=== PATIENT | female | born 1940 | race Caucasian/White ===

== ENCOUNTER 2023-04-06 09:09 | Outpatient (RCR) | payer OTHER, SELFPAY | END 2023-04-06 23:59 | disposition home or self-care (01) | LOC: RPT 09:09 | PROVIDERS: ATTENDING PHYSICIAN Psychiatry & Neurology Neurology; FAMILY PHYSICIAN Family Medicine | DX: R26.89 Other abnormalities of gait and mobility (principal) | CPT/HCPCS: 97110; 97112; 97162 ==

== ENCOUNTER 2023-05-11 08:39 | Outpatient (RCR) | payer OTHER, SELFPAY | END 2023-05-11 23:59 | disposition home or self-care (01) | LOC: RPT 08:39 | PROVIDERS: ATTENDING PHYSICIAN Psychiatry & Neurology Neurology; FAMILY PHYSICIAN Family Medicine | DX: R26.89 Other abnormalities of gait and mobility (principal); M62.81 Muscle weakness (generalized) | CPT/HCPCS: 97110; 97112 ==

== ENCOUNTER 2023-05-19 09:45 | Outpatient (RCR) | payer OTHER, SELFPAY | END 2023-05-19 11:38 | disposition home or self-care (01) | LOC: RPT 09:45 | PROVIDERS: ATTENDING PHYSICIAN Psychiatry & Neurology Neurology; FAMILY PHYSICIAN Family Medicine | DX: R26.89 Other abnormalities of gait and mobility (principal) | CPT/HCPCS: 97110; 97112 ==

== ENCOUNTER → 2023-09-05 07:43 | Outpatient (REF) | payer OTHER, SELFPAY | LOC: PAVMRI 07:43 | PROVIDERS: ATTENDING PHYSICIAN Orthopaedic Surgery Hand Surgery; FAMILY PHYSICIAN Family Medicine | DX: M25.511 Pain in right shoulder (principal) | CPT/HCPCS: 73221 ==

== ENCOUNTER → 2023-09-28 08:26 | Outpatient (REF) | payer OTHER, SELFPAY | LOC: RCS 08:26 | PROVIDERS: ATTENDING PHYSICIAN Internal Medicine Cardiovascular Disease; FAMILY PHYSICIAN Family Medicine | DX: Z01.818 Encounter for other preprocedural examination (principal); R00.2 Palpitations; I47.10 Supraventricular tachycardia, unspecified | CPT/HCPCS: 93225; 93226 ==

== ENCOUNTER 2023-10-11 06:23 | Day surgery (SDC) | payer OTHER, SELFPAY ==
[2023-10-05 07:40] VITALS: BMI 31.2
[2023-10-05 08:49] LABS: % Basophils 0.7 % (0-2); % Eosinophils 2.1 % (0-6); % Immature Granulocytes 0.3 % (0-0.5); % Lymphocytes 36.6 % (20.5-51.1); % Monocytes 9.1 % (1.7-9.3); % Neutrophils 51.2 % (42.2-75.2); Absolute Basophils 0.1 10^3/uL (0-0.2); Absolute Eosinophils 0.2 10^3/uL (0-0.7); Absolute Lymphocytes 2.7 10^3/uL (1.2-3.4); Absolute Monocytes 0.7 10^3/uL (0.1-0.6); Absolute Neutrophils 3.7 10^3/uL (1.4-6.5); Hemoglobin 13.6 g/dL (12.0-16.0); Mean Corp Hgb Conc. 33.2 g/dL (33.0-37.0); Mean Corpuscular Hgb 31.6 pg (27.0-31.0); Mean Corpuscular Volume 95.1 fL (81.0-99.0); Mean Platelet Volume 9.9 fL (7.4-10.4); Nucleated Red Blood Cells % 0 %; Platelet Count 316 10^3/uL (130-400); Red Blood Cell Count 4.31 10^6/uL (4.20-5.40); Red Cell Dist. Width 13.6 % (11.5-14.5); White Blood Cell Count 7.3 10^3/uL (4.8-10.8)
[2023-10-05 09:13] LABS: Blood Urea Nitrogen 11 mg/dl (7-17); Carbon Dioxide 26 mmol/L (22-30); Chloride 102 mmol/L (98-107); Estimated Creatinine Clearance 50 ml/min; Glucose 98 mg/dl (70-99); Potassium 4.7 mmol/L (3.5-5.1); Sodium 138 mmol/L (135-145); eGFR > 60.00
[2023-10-11] VITALS (10 sets, daily range): BP systolic 114–163; BP diastolic 47–98; BMI 31.2
[2023-10-11] MEDS: NORMOSOL-R 1000 IV (07:52)
[2023-10-11] MEDS: VANCOCIN 200 IV (07:52)
[2023-10-11] MEDS: TYLENOL 1000 MG PO (08:04)
[2023-10-11] MEDS: CELEBREX 200 MG PO (08:04)
[2023-10-11] MEDS: DILAUDID 0.25 MG IV ×2 (10:37→10:55)
[2023-10-11] MEDS: ZOFRAN 4 MG IV (10:55)
== END 2023-10-11 12:25 | disposition home or self-care (01) ==
LOC: SDS 06:23
PROVIDERS: ATTENDING PHYSICIAN Orthopaedic Surgery Hand Surgery; FAMILY PHYSICIAN Family Medicine; OTHER PHYSICIAN Internal Medicine
DX: M75.102 Unspecified rotator cuff tear or rupture of left shoulder, not specified as traumatic (principal); M75.42 Impingement syndrome of left shoulder; M75.22 Bicipital tendinitis, left shoulder
CPT/HCPCS: 29827; 29828; 29826; 36415; 80048; 85025; C1713

== ENCOUNTER → 2023-12-30 08:39 | Outpatient (REF) | payer OTHER, SELFPAY | LOC: RAD 08:39 | PROVIDERS: ATTENDING PHYSICIAN Internal Medicine Gastroenterology; FAMILY PHYSICIAN Family Medicine | DX: K58.1 Irritable bowel syndrome with constipation (principal) | CPT/HCPCS: 74018 ==

== ENCOUNTER 2024-07-20 15:48 | Emergency (ER) | payer OTHER, SELFPAY ==
[2024-07-20 15:49] VITALS: BP 154/84
[2024-07-20 16:21] LABS: % Basophils 0.6 % (0-2); % Eosinophils 1.2 % (0-6); % Immature Granulocytes 0.3 % (0-0.5); % Lymphocytes 30.9 % (20.5-51.1); % Monocytes 8.7 % (1.7-9.3); % Neutrophils 58.3 % (42.2-75.2); Absolute Basophils 0.1 10^3/uL (0-0.2); Absolute Eosinophils 0.1 10^3/uL (0-0.7); Absolute Lymphocytes 2.4 10^3/uL (1.2-3.4); Absolute Monocytes 0.7 10^3/uL (0.1-0.6); Absolute Neutrophils 4.5 10^3/uL (1.4-6.5); Hematocrit 39.5 % (37.0-47.0); Hemoglobin 13.5 g/dL (12.0-16.0); Mean Corp Hgb Conc. 34.2 g/dL (33.0-37.0); Mean Corpuscular Hgb 30.9 pg (27.0-31.0); Mean Corpuscular Volume 90.4 fL (81.0-99.0); Mean Platelet Volume 8.9 fL (7.4-10.4); Nucleated Red Blood Cells % 0 %; Platelet Count 283 10^3/uL (130-400); Red Blood Cell Count 4.37 10^6/uL (4.20-5.40); White Blood Cell Count 7.7 10^3/uL (4.8-10.8)
[2024-07-20 16:39] LABS: ALT (SGPT) 35 U/L (0-35); AST (SGOT) 29 U/L (14-36); Albumin 4.1 g/dl (3.5-5.0); Alkaline Phosphatase 88 U/L (38-126); Blood Urea Nitrogen 13 mg/dl (7-17); Calcium 9.7 mg/dl (8.4-10.2); Carbon Dioxide 25 mmol/L (22-30); Chloride 106 mmol/L (98-107); Glucose 119 mg/dl (70-99); Potassium 4.6 mmol/L (3.5-5.1); Sodium 137 mmol/L (135-145); Total Bilirubin 0.7 mg/dl (0.2-1.3); Total Protein 7.1 g/dl (6.3-8.2); eGFR > 60.00
[2024-07-20 20:06] VITALS: BMI 30.1
[2024-07-20 20:07] VITALS: BP 194/76
--- NOTE | 2024-07-20 20:20 | ED.GENMED ---
History of Present Illness
General
Chief Complaint: Dizziness
Source: patient
Exam Limitations: none
Time Seen by Provider: 07/20/24 20:05
History of Present Illness
History of Present Illness:
84yoF with a history of hypertension and hyperlipidemia presenting with her daughter for evaluation of dizziness. Symptoms began this morning when she rolled over in bed after waking up at 5am. She reports feeling like the room is spinning. She
only has symptoms with head movement and position changes. She has no symptoms at rest. She also reports nausea but denies any vomiting. She has a mild headache currently which she believes is from not eating all day today. She was seen by her
PCP earlier today and was sent to the ED for evaluation. She denies any chest pain, shortness of breath, paresthesias, weakness, visual changes, head trauma, hearing loss, tinnitus, ear pain.
Past History
Past History
ED Past Medical History: HTN and Hypercholesterolemia
ED Past Surgical History: Appendectomy, Gynecological and Orthopedic
Social History
Tobacco: Former smoker
Alcohol: Daily
Drug: None
Living: with family
Phy Exam
General Physical Exam
General Presentation: well appearing and no apparent distress
General age: appears stated age
General Skin: warm and dry
General Habitus: normal
General Mental: alert
ENT Exam
ENT Exam: TM's normal and normocephalic
Eye Exam
Eye Exam: PERRL, EOMI and conjunctiva normal
Cardiovascular Exam
Cardiovascular Exam: regular rate/rhythm
Pulmonary Exam
Pulmonary Exam: lungs clear, no respiratory distress, no rales, no crackles, no rhonchi and no wheezing
Neurological Exam
Neurological Exam: alert, CN II-XII intact, no motor deficits, speech normal and other (CN 2-12 intact. PERRL. EOMs intact. 5/5 strength in all extremities. Normal finger to nose and heel to aguilar bilaterally. )
Mary Carmen Coma Scale
Eye Opening: Spontaneous
Verbal Response: Oriented
Motor Response: Obeys Commands
GCS Total Score: 15
Skin Exam
Skin Exam: normal color and warm/dry
Psychiatric Exam
Psychiatric Exam: normal mood/affect
Course
Orders/Labs/Results
Orders:
Orders
07/20/24 16:09
Complete Blood Count/With Diff Urgent
Comprehensive Metabolic Panel Urgent
07/20/24 20:19
Electrocardiogram (*1) Urgent
Reason for Study: Vertigo / Dizzy
CT Head W/o Iv Contrast Urgent
Comment:
Reason For Exam: dizziness
EKG- Treatment ONCE
Meclizine [Antivert] 25 mg PO NOW STA
Ondansetron Injectable [Zofran] 4 mg IV NOW STA
07/20/24 21:15
Troponin I Urgent
Abnormal Lab Results
07/20/24
16:09
Absolute Monos (auto) 0.7 H 10^3/uL
(0.1-0.6)
Glucose 119 H mg/dl
(70-99)
07/20/24 16:09
07/20/24 16:09
Vital Signs
Initial and Last Documented VS:
Initial Vital Signs
Temp Pulse Resp BP Pulse Ox
98.2 F 75 18 154/84 97
07/20/24 15:49 07/20/24 15:49 07/20/24 15:49 07/20/24 15:49 07/20/24 15:49
Last Documented Vital Signs
Temp Pulse Resp BP Pulse Ox
98.2 F 66 19 149/64 96
07/20/24 15:49 07/20/24 22:00 07/20/24 21:45 07/20/24 22:00 07/20/24 21:45
MDM/Problems Addressed
Differential Diagnosis Includes:
84yoF here with dizziness that began this morning. Feels like room is spinning. Only present with head movement/position changes. +Nausea. No dizziness on initial exam. Neuro exam is non-focal. There is no ataxia or nystagmus appreciated.
Differential diagnosis includes but is not limited to: BPPV, vestibular neuronitis, labyrinthitis, M�ni�re's, less likely CVA less likely CVA
Initial ED plan: Basic labs obtained in triage which are unremarkable. Will check troponin/EKG and CT head. Meclizine and IV Zofran and reassess.
*EKG
Interpreted by ED Provider?: Yes
EKG Intrepretation Date: 07/20/24
Heart Rate: 66
Rate: normal
Rhythm: sinus
[place]: normal axis
Interval: normal interval
QRS Pattern: normal QRS
Ischemia: no ischemia
*Critical Care Note
Total Time (30-74mins, 75-104mins- exclusive of procedures): Not Applicable
Update Note
Update Note:
EKG shows normal sinus rhythm without ischemic changes and troponin within normal limits. Head CT negative for acute findings. Patient is asymptomatic on reassessment and is feeling better after medications. She was able to ambulate independently
with a steady gait without any recurrent dizziness. Suspect peripheral vertigo. Very low clinical suspicion of CVA. No indication for hospitalization. Prescriptions provided for meclizine and Zofran and paper prescription for outpatient
vestibular therapy given. Advised close follow-up with PCP and strict ED return precautions discussed. Both patient and daughter are in agreement with plan. She was discharged in stable condition.
ED Attending Note
-
Portions of this chart may have been created with voice recognition software.� Occasional wrong word or��sound alike� substitutions may have occurred due to the inherent limitations of voice recognition software.
Discharge Plan
Departure
Patient Disposition: Home (Routine Discharge)
Date of Disposition: 07/20/24
Time of Disposition: 22:20
Patient with high blood pressure during this ER visit?: No
Discharge Problem:
Vertigo
Instructions: Vertigo (a Type of Dizziness) (DC)
Prescriptions:
New
meclizine 12.5 mg tablet
12.5 mg PO TID PRN (Reason: dizziness) Qty: 20 0RF
ondansetron 4 mg tablet,disintegrating
4 mg PO Q6H PRN (Reason: nausea and vomiting) Qty: 20 0RF
No Action
amlodipine 2.5 MG tablet
2.5 mg PO HS
pravastatin 10 MG tablet
10 mg PO HS
Align (B.infantis) 4 MG capsule
4 mg PO DAILY
losartan 50 MG tablet
100 mg PO DAILY
melatonin 2.5 mg Tablet,Chewable
2.5 mg PO HS PRN (Reason: Insomnia)
Referrals:
Levi Shaw MD [Family Provider] -
Activity Restrictions/Additional Instructions:
Take meclizine as needed for dizziness. Take Zofran as needed for nausea.
Please call your family doctor on Tuesday for follow-up. You should also call to schedule an appointment for outpatient vestibular therapy.
Return to the ER with any new or worsening symptoms.
Interventions
Interventions:
*Risk Screen - Suicide Last Done: 07/20/24 15:49
*General Assessment Last Done: 07/20/24 15:49
*Neglect/Abuse Screening Last Done: 07/20/24 15:49
*ED- Fall Risk Assessment Last Done: 07/20/24 20:07
*ED COVID-19 Vaccine History Last Done: 07/20/24 15:49
*Nursing Disposition Last Done: 07/20/24 22:31
ED- Neurological Assessment Last Done: 07/20/24 20:11
ED- Cardiac Assessment Last Done: 07/20/24 20:11
ED Swallowing Screen Last Done: 07/20/24 21:06
Discharge Date and Time
Discharge Date/Time: 07/20/24 22:32
Print Language: IRISH
[2024-07-20] MEDS: ZOFRAN 4 MG IV (20:56)
[2024-07-20 21:01] VITALS: BP 169/76
[2024-07-20] MEDS: ANTIVERT 25 MG PO (21:07)
[2024-07-20 22:00] VITALS: BP 149/64
[2024-07-20 22:06] LABS: Troponin I < 0.012 ng/ml
== END 2024-07-20 22:32 | disposition home or self-care (01) ==
LOC: EMR 15:48
PROVIDERS: Emergency Medicine; Physician Assistant; EMERGENCY PHYSICIAN Emergency Medicine; FAMILY PHYSICIAN Family Medicine
DX: R42 Dizziness and giddiness (principal); I10 Essential (primary) hypertension; E78.00 Pure hypercholesterolemia, unspecified; Z87.891 Personal history of nicotine dependence; Z90.49 Acquired absence of other specified parts of digestive tract
CPT/HCPCS: 99284; 96374; 70450; 80053; 84484; 85025; 93005

== ENCOUNTER 2024-07-23 15:39 | Outpatient (RCR) | payer OTHER, SELFPAY | END 2024-07-23 23:59 | disposition home or self-care (01) | LOC: RPT 15:39 | PROVIDERS: ATTENDING PHYSICIAN Family Medicine | DX: H81.10 Benign paroxysmal vertigo, unspecified ear (principal); Z73.6 Limitation of activities due to disability | CPT/HCPCS: 97161 ==

== ENCOUNTER → 2024-08-10 12:29 | Outpatient (REF) | payer OTHER, SELFPAY | LOC: WDC 12:29 | PROVIDERS: ATTENDING PHYSICIAN Family Medicine | DX: Z12.31 Encounter for screening mammogram for malignant neoplasm of breast (principal) | CPT/HCPCS: 77063; 77067 ==

== ENCOUNTER 2024-12-13 08:51 | Outpatient (RCR) | payer OTHER, SELFPAY | END 2024-12-13 23:59 | disposition home or self-care (01) | LOC: RPT 08:51 | PROVIDERS: ATTENDING PHYSICIAN Orthopaedic Surgery Hand Surgery; FAMILY PHYSICIAN Family Medicine | DX: Z47.89 Encounter for other orthopedic aftercare (principal); M25.512 Pain in left shoulder; Z73.6 Limitation of activities due to disability; M54.2 Cervicalgia | CPT/HCPCS: 97110; 97162 ==

== ENCOUNTER 2025-01-08 08:47 | Outpatient (RCR) | payer OTHER, SELFPAY | END 2025-01-08 14:21 | disposition home or self-care (01) | LOC: RPT 08:47 | PROVIDERS: ATTENDING PHYSICIAN Orthopaedic Surgery Hand Surgery; FAMILY PHYSICIAN Family Medicine | DX: Z47.89 Encounter for other orthopedic aftercare (principal); M25.512 Pain in left shoulder (principal); Z73.6 Limitation of activities due to disability; M54.2 Cervicalgia | CPT/HCPCS: 97110 ==